=== PATIENT | male | born 1970 | race Caucasian/White ===

== ENCOUNTER 2017-08-26 14:42 | Emergency (ER) | payer MEDICARE ==
[2017-08-26 14:50] VITALS: BP 142/74; PULSE 115; RESP 20; TEMP 99
[2017-08-26] MEDS ORDERED: SULFAMETH-TMP DS STARTER PACK 2 TAB BTL PO STA ×2 (15:07→15:18)
--- NOTE | 2017-08-26 15:12 | ED ---
Skin/Abscess/FB HPI - General Chief complaint: Skin/Abscess/Foreign Body Stated complaint: lump on leg Time Seen by Provider: 08/26/17 14:56 Source: patient, RN notes reviewed Mode of arrival: ambulatory Limitations: no limitations - History of Present Illness Initial comments: 47-year-old male presents emergency Department chief complaint of swelling to his left leg. Patient states started 2 days ago was an ingrown hair. Patient denies fevers or chills. Patient states she is concerned has had MRSA infection in the past. Patient denies any pain into his groin states is on some swelling and pain at the site. Patient states it is red and swollen. - Related Data Previous Rx's Medication Instructions Recorded Sulfamethox-Tmp 800-160Mg [Bactrim 2 each PO Q12HR #40 tab 08/26/17 Ds] Allergies Allergy/AdvReac Type Severity Reaction Status Date / Time strawberry [[place]] Allergy Unknown Verified 08/26/17 14:51 venom-honey bee Allergy Unknown Verified 08/26/17 14:51 [bee venom (honey bee)] warfarin sodium Allergy Swelling Verified 08/26/17 14:51 [From Coumadin] Review of Systems ROS Statement: Those systems with pertinent positive or pertinent negative responses have been documented in the HPI. ROS Other: All systems not noted in ROS Statement are negative. Past Medical History Past Medical History: Heart Failure, Myocardial Infarction ([place]) Additional Past Medical History / Comment(s): "heart problems" History of Any Multi-Drug Resistant Organisms: MRSA Date of last positivie culture/infection: 2006 MDRO Source:: groin Past Surgical History: Orthopedic Surgery, Pacemaker Additional Past Surgical History / Comment(s): pacer/defib. Past Psychological History: No Psychological Hx Reported Smoking Status: Current every day smoker Past Alcohol Use History: None Reported Past Drug Use History: None Reported General Exam Limitations: no limitations General appearance: alert, in no apparent distress, anxious Head exam: Present: atraumatic, normocephalic, normal inspection Respiratory exam: Present: normal lung sounds bilaterally. Absent: respiratory distress, wheezes, rales, rhonchi, stridor Cardiovascular Exam: Present: regular rate (Patient was tachycardic on triage but regularly on exam.), normal rhythm, normal heart sounds. Absent: systolic murmur, diastolic murmur, rubs, gallop, clicks Extremities exam: Present: other (Left inner thigh region there is a 2 cm firm nonfluctuant area swelling/abscess, no palpable lymph nodes in the left groin there is evidence of tinea) Skin exam: Present: warm, dry, intact, normal color. Absent: rash Course Vital Signs 08/26/17 14:47 Temperature 99.0 F Pulse Rate 115 H Respiratory 20 Rate Blood Pressure 142/74 O2 Sat by Pulse 99 Oximetry Medical Decision Making - Medical Decision Making 39-year-old male present emergency from for left leg, thigh swelling. Patient has an early abscess is nonfluctuant there is no area be opened. Patient does have evidence of tinea though the patient prefers to use [id number] medications. Patient will be given Bactrim DS now 2 tablets and discharged with Bactrim DS 2 tablets twice daily return parameters were discussed. Disposition Clinical Impression: Cellulitis of left thigh Disposition: HOME SELF-CARE Condition: Stable Instructions: Abscess (ED), Cellulitis (ED) Additional Instructions: Please return to the Emergency Department if symptoms worsen or any other concerns. Prescriptions: Sulfamethox-Tmp 800-160Mg [Bactrim Ds] 2 each PO Q12HR #40 tab Referrals: None,Stated [Primary Care Provider] - 1-2 days Time of Disposition: 15:12
== END 2017-08-26 15:28 | disposition home or self-care (01) ==
LOC: EC 14:42
DX: L03.116 Cellulitis of left lower limb (principal); B35.9 Dermatophytosis, unspecified; Z86.14 Personal history of Methicillin resistant Staphylococcus aureus infection; F17.200 Nicotine dependence, unspecified, uncomplicated; Z88.8 Allergy status to other drugs, medicaments and biological substances; Z91.018 Allergy to other foods; Z91.030 Bee allergy status
CPT/HCPCS: 99283